=== PATIENT | male | born 1975 | race Caucasian/White ===

== ENCOUNTER 2020-07-18 02:32 | Emergency (ER) | payer BC ==
[~2020-07-18] VITALS: Ht 180.3 cm; Wt 99.8 kg
[2020-07-18 02:50] VITALS: BP_SYST 144
--- NOTE | 2020-07-18 02:50 | NUR ---
Patient to [facility] for evaluation. Side rails up.
--- NOTE | 2020-07-18 02:55 | NUR ---
pt a&o x4 c/o of right sided ear pain and swelling started a couple days ago. pt states he stuck his pointer finger in his ear yesterday and noticed yellow oily discharge come out. pt reports 8/10 pain. pt states it feels like he feels water swooshing around in his ear when he moves.
--- NOTE | 2020-07-18 02:57 | NUR ---
ER Dr. Yousif at bedside examining patient.
[2020-07-18 03:20] VITALS: BP_SYST 133
--- NOTE | 2020-07-18 03:20 | NUR ---
Patient given written and verbal discharge instructions and verbalizes understanding. ER MD discussed with patient the results and treatment provided. Patient in stable condition. ID arm band removed. Rx of oflaxcin given. Patient educated on pain management and to follow up with PMD. Pain Scale 5/10. Opportunity for questions provided and answered. Medication side effect fact sheet provided.
[2020-07-18] MEDS ORDERED: OFLOXACIN 0.3%, 5 ML EAR DROPS ONE (03:25)
== END 2020-07-18 03:20 | disposition home or self-care (01) ==
LOC: SED 02:32
DX: H60.91 Unspecified otitis externa, right ear (principal)
CPT/HCPCS: 99283